=== PATIENT | female | born 1980 | race Caucasian/White ===

== ENCOUNTER 2020-07-07 11:43 | Emergency (ER) | payer MEDICAID, OTHER ==
[~2020-07-07] VITALS: Ht 172.7 cm; Wt 69.0 kg
[2020-07-07] MEDS ORDERED: LORazepam 2 MG/ML, 1ML IVPush ONE (12:00)
[2020-07-07] MEDS ORDERED: SODIUM CHLORIDE 0.9% 1,000ML IVBOLUS ONE (12:00)
[2020-07-07] MEDS ORDERED: SODIUM CHLORIDE FLUSH 10ML SYR IVF ONE (12:00)
--- NOTE | 2020-07-07 12:00 | NUR ---
Seizure today. Hx of the same. No Keppra since Monday. C/O N/V and fatigue. Relapsed on EtOH 3 weeks ago and has been drinking 1 pint per day ever since. EKG done. Placed on NIBP, pulse ox, and cardiac surgeon. SO at bedside. [facility] [place] [facility] and landlord recently moved back in. Her and her SO have been camping or staying at the [facility] ever since. Will continue to monitor.
--- NOTE | 2020-07-07 12:02 | NUR ---
FSBS = 60. MAXX Hagan aware.
[2020-07-07] MEDS ORDERED: DEXTROSE 10% 1,000 ML IV ONE (12:30)
[2020-07-07 12:32] LABS: ALANINE AMINOTRANSFERASE 110 U/L (12-78); ALBUMIN 3.8 g/dL (3.4-5.0); ANION GAP 17 mmol/L (5-15); CALCIUM 8.4 mg/dL (8.5-10.1); CHLORIDE 102 mmol/L (98-107); INTERNATIONAL NORMALIZED RATIO 1.29 (0.93-1.1); PROTHROMBIN TIME 13.3 Seconds (9.6-11.5)
[2020-07-07] MEDS ORDERED: LORazepam 2 MG/ML, 1ML ONE (12:34)
[2020-07-07 12:38] LABS: ALKALINE PHOSPHATASE 136 U/L (45-117); BILIRUBIN,TOTAL 1.9 mg/dL (0.2-1.0); CREATININE 0.61 mg/dL (0.55-1.02); TOTAL PROTEIN 7.7 g/dL (6.4-8.2)
[2020-07-07 12:43] LABS: BASOPHILS # (AUTO) 0.04 x10^3/uL (0-0.1); BASOPHILS % (AUTO) 2 % (0-1); EOSINOPHILS # (AUTO) 0.02 x10^3/uL (0-0.4); EOSINOPHILS % (AUTO) 1 % (1-7); LYMPHOCYTES % (AUTO) 32 % (22-44); MD MORPH REVIEW ONLY; MEAN CORPUSCULAR HGB CONC 32.7 g/dL (32.4-35.8); MEAN CORPUSCULAR VOLUME 91.7 fL (80-100); MEAN PLATELET VOLUME 8.4 fL (7.4-10.4); MONOCYTES # (AUTO) 0.21 x10^3/uL (0.2-0.8); MONOCYTES % (AUTO) 10 % (2-9); NEUTROPHILS # (AUTO) 1.21 x10^3/uL (1.8-6.8); NEUTROPHILS % (AUTO) 56 % (42-75); PLATELET COUNT 103 x10^3/uL (130-400); RED BLOOD COUNT 4.16 x10^6/uL (3.82-5.3); RED CELL DISTRIBUTION WIDTH 21.3 % (9.6-15.2)
[2020-07-07 12:44] LABS: ANISOCYTOSIS 1+
[2020-07-07 12:45] LABS: <PLATELET ESTIMATE> DECREASED; <PLT MORPHOLOGY> NORMAL PLT MORPH; MICROCYTOSIS 1+
[2020-07-07] MEDS ORDERED: PLEASE ENTER ALLERGIES MC SCH (13:00)
--- NOTE | 2020-07-07 13:02 | NUR ---
Resting in [facility]. RR = 16. No needs.
[2020-07-07] MEDS ORDERED: POTASSIUM CHLORIDE 20 MEQ TAB.ER.PRT PO ONE (13:30)
[2020-07-07] MEDS ORDERED: LEVETIRACETAM 500 MG TABLET PO ONE (13:30)
--- NOTE | 2020-07-07 14:00 | NUR ---
Provided with meal tray. No other needs.
[2020-07-07] MEDS ORDERED: ONDANSETRON 2MG/ML, 2ML ONE (14:22)
[2020-07-07] MEDS ORDERED: ONDANSETRON 2MG/ML, 2ML IVPush ONE (14:30)
[2020-07-07] MEDS ORDERED: LEVETIRACETAM 500 MG TABLET ONE (15:01)
[2020-07-07] MEDS ORDERED: POTASSIUM CHLORIDE 20 MEQ TAB.ER.PRT ONE (15:01)
[2020-07-07] MEDS ORDERED: KETOROLAC 30 MG/1 ML ONE (15:14)
--- NOTE | 2020-07-07 15:17 | NUR ---
C/O LBP. Toradol admin.
[2020-07-07] MEDS ORDERED: KETOROLAC 30 MG/1 ML IVPush ONE (15:30)
[2020-07-07 15:32] VITALS: BP 142/66
--- NOTE | 2020-07-07 15:52 | NUR ---
Patient/Caregiver given discharge instructions and they have confirmed that they understand the instructions. Patient ambulatory with steady gait.
== END 2020-07-07 15:56 | disposition home or self-care (01) ==
LOC: ED 12:49
DX: K70.30 Alcoholic cirrhosis of liver without ascites (principal); R56.9 Unspecified convulsions; R94.5 Abnormal results of liver function studies; R11.2 Nausea with vomiting, unspecified; R00.0 Tachycardia, unspecified; R53.1 Weakness; E87.6 Hypokalemia; E16.2 Hypoglycemia, unspecified; R55 Syncope and collapse; Z72.89 Other problems related to lifestyle
CPT/HCPCS: 70450; 72125; 80053; 80307; 82962; 84703; 85025; 85610; 93005; 96365; 96366; 96375; 99285; J1885; J2060; J2405; J7030

== ENCOUNTER 2020-07-19 12:20 | Emergency (ER) | payer MEDICAID, OTHER ==
[~2020-07-19] VITALS: Ht 172.7 cm; Wt 65.0 kg
[2020-07-19 12:24] VITALS: BP 149/90
--- NOTE | 2020-07-19 12:24 | NUR ---
THIS IS A 40 YO F BIB EMS FROM [facility] W/ C/O ANXIETY ATTACK AND DESIRE TO DETOX. PT REPORTS DRINKING 1 PINT/DAY X1 MONTH, LAST HAD 4 SHOTS FORM [employer]. [facility]ING [facility] [employer] W/ CALL LIGHT IN REACH, RESP EVEN AND UNLABORED, SIDE RAILS UPX2, NADN. AWAITING ED EVAL.
--- NOTE | 2020-07-19 12:50 | NUR ---
LAB IN ROOM.
[2020-07-19] MEDS ORDERED: THIAMINE 100MG TABLET ONE (12:57)
[2020-07-19] MEDS ORDERED: ONDANSETRON ODT 4 MG ONE (12:58)
[2020-07-19] MEDS ORDERED: THIAMINE 100MG TABLET PO ONE (13:00)
[2020-07-19] MEDS ORDERED: ONDANSETRON ODT 4 MG PO ONE (13:00)
--- NOTE | 2020-07-19 13:01 | NUR ---
PT AMBULATED TO TELEPHONE W/ A STEADY GAIT.
[2020-07-19 13:03] LABS: MEAN CORPUSCULAR HGB CONC 32.5 g/dL (32.4-35.8); MEAN CORPUSCULAR VOLUME 95.1 fL (80-100); MEAN PLATELET VOLUME 7.2 fL (7.4-10.4); PLATELET COUNT 146 x10^3/uL (130-400); RED BLOOD COUNT 3.89 x10^6/uL (3.82-5.3); RED CELL DISTRIBUTION WIDTH 23.5 % (9.6-15.2)
--- NOTE | 2020-07-19 13:38 | NUR ---
PT WOULD LIKE TAXI VOUCHER TO [facility] FOR DETOX.
[2020-07-19 13:40] LABS: BASOPHILS # (AUTO) 0.05 x10^3/uL (0-0.1); BASOPHILS % (AUTO) 2 % (0-1); EOSINOPHILS # (AUTO) 0.03 x10^3/uL (0-0.4); EOSINOPHILS % (AUTO) 1 % (1-7); LYMPHOCYTES % (AUTO) 43 % (22-44); MD MORPH REVIEW ONLY; MONOCYTES # (AUTO) 0.51 x10^3/uL (0.2-0.8); MONOCYTES % (AUTO) 20 % (2-9); NEUTROPHILS # (AUTO) 0.88 x10^3/uL (1.8-6.8); NEUTROPHILS % (AUTO) 34 % (42-75)
[2020-07-19 13:41] LABS: ANISOCYTOSIS 1+; MICROCYTOSIS 1+
[2020-07-19 13:42] LABS: <PLATELET ESTIMATE> ADEQUATE; <PLT MORPHOLOGY> NORMAL PLT MORPH
== END 2020-07-19 13:54 | disposition home or self-care (01) ==
LOC: ED 13:45
DX: F10.229 Alcohol dependence with intoxication, unspecified (principal); G40.909 Epilepsy, unspecified, not intractable, without status epilepticus; R11.0 Nausea; R42 Dizziness and giddiness; Y90.0 Blood alcohol level of less than 20 mg/100 ml
CPT/HCPCS: 36415; 80307; 85025; 99283; Q0162